=== PATIENT | female | born 1970 | race Caucasian/White ===

== ENCOUNTER → 2017-06-16 | Outpatient (CLI) | payer BC | END | disposition home or self-care (01) | LOC: GMAB 10:22 | PROVIDERS: ATTEND Family Medicine | DX: Z00.00 Encounter for general adult medical examination without abnormal findings (principal) ==

== ENCOUNTER 2019-03-03 00:01 | Emergency (ER) | payer BC ==
[2019-03-03] MEDS ORDERED: ALUM & MAG HYDROX-SIMETHICONE 30 ML, LIDOCAINE VISCOUS 2% 15 ML PO ONE ×2 (00:23)
[2019-03-03] MEDS ORDERED: ALUM & MAG HYDROX-SIMETHICONE 30 ML UD ONE (00:24)
[2019-03-03] MEDS ORDERED: LIDOCAINE HCL 2% (MOUTH-THROAT) 15 ML UD ONE (00:24)
--- NOTE | 2019-03-03 00:29 | ED.PDOC ---
History of Present Illness - General Chief Complaint: Abdominal Pain Stated Complaint: upper abdominal pain Time Seen by Provider: 03/03/19 00:22 Information Source: patient, family Exam Limitations: no limitations - History of Present Illness Initial Comments: patient comes in today for sudden onset at 4 PM of epigastric pain radiating to her chest to her jaw. Patient states it feels that there is a horrible pressure pushing up to the area. Patient had an episode of emesis while waiting in the emergency room and states that made it feel a whole lot better. Patient states the discomfort now is minimal. Patient states she is dull with this pain pretty much her entire adult life. They to get her gallbladder but that did not make a difference and she's had endoscopy that was always read as normal. Patient states normally she drinks some water that will help relieve the pressure but this time that did not work. Patient's had no fever or chills. She's had no abdominal distention or diarrhea. She denies any cough or cold symptoms. Patient is otherwise in her usual state of health. She does have a history of cluster headaches and has had to have surgery of her cervical and lumbar spine. Patient's past surgical history is also positive for abdominal hysterectomy, cholecystectomy, C-sections 2. Abdominal Pain Onset Location: epigastric Pain Radiation: chest, other - jaw Quality: severe, aching - pressure like pain Timing/Duration: 7-24 hours Improving Factors: other - emesis and usually drinking water Worsening Factors: nothing Associated Symptoms: nausea/vomiting Review of Systems - Review of Systems Constitutional: States: no symptoms reported. Denies: chills, fever, malaise, weakness EENTM: States: no symptoms reported. Denies: eye pain, ear pain, nose congestion, throat pain Respiratory: States: no symptoms reported. Denies: cough, short of breath, wheezing Cardiology: States: no symptoms reported. Denies: chest pain Gastrointestinal/Abdominal: States: see HPI, abdominal pain, nausea, vomiting Genitourinary: States: no symptoms reported Musculoskeletal: States: no symptoms reported Past Medical History (General) - Patient Medical History Hx Cardiac Disorders: No Hx Congestive Heart Failure: No Hx Hypertension: No Hx Diabetes: No Hx Cancer: No Hx Hepatitis C: No Hx MRSA: No Surgical History: cholecystectomy, Hysterectomy, other - x 2, Hyst, neck and back surgery - Vaccination History Hx Tetanus, Diphtheria Vaccination: No Hx Influenza Vaccination: No Hx Pneumococcal Vaccination: No - Social History Hx Tobacco Use: No Hx Alcohol Use: Yes Hx Substance Use: No Hx Substance Use Treatment: No Hx Depression: No - Female History Patient : No Family Medical History - Family History Mother Family History: Unknown Physical Exam - Physical Exam General Appearance: Alert, Comfortable, No apparent distress Eyes, Ears, Nose, Throat Exam: PERRL/EOMI, normal ENT inspection, TMs normal, pharynx normal Neck: non-tender, full range of motion, supple, normal inspection Respiratory: chest non-tender, lungs clear, normal breath sounds, no respiratory distress Cardiovascular/Chest: normal peripheral pulses, regular rate, rhythm, no edema, no murmur Peripheral Pulses: No deficit Gastrointestinal/Abdominal: normal bowel sounds, non tender, soft Back Exam: normal inspection, no CVA tenderness Extremity: normal range of motion Neurologic: alert, oriented x 3 Progress - Progress Progress: 03/03/19 01:36 patient is feeling much better and currently asymptomatic. Explained test results and will have her contact GI on Tuesday to see if possible hiatal hernia. - Results/Orders Results/Orders: 03/03/19 00:30 EKG STAT Laboratory Results WBC 9.0 K/mm3 (4.8-10.8) 03/03/19 00:35 RBC 4.61 M/mm3 (4.20-5.40) 03/03/19 00:35 Hgb 14.6 gm/dL (12.0-16.0) 03/03/19 00:35 Hct 42.9 % (36.0-47.0) 03/03/19 00:35 MCV 93.0 fl (81.0-99.0) 03/03/19 00:35 MCH 31.7 pg (27.0-31.0) H 03/03/19 00:35 MCHC 34.1 g/dL (33.0-37.0) 03/03/19 00:35 RDW 12.8 % (11.5-14.5) 03/03/19 00:35 Plt Count 208 K/mm3 (130-400) 03/03/19 00:35 MPV 8.9 fl (7.40-10.4) 03/03/19 00:35 Absolute Neuts (auto) 5.00 K/uL (1.8-6.8) 03/03/19 00:35 Absolute Lymphs (auto) 2.90 K/uL (1.0-3.4) 03/03/19 00:35 Absolute Monos (auto) 0.70 K/uL (0.2-0.8) 03/03/19 00:35 Absolute Eos (auto) 0.40 K/uL (0.0-0.4) 03/03/19 00:35 Absolute Basos (auto) 0.00 K/uL (0.0-0.1) 03/03/19 00:35 Neutrophils % 55.7 % (42.0-78.0) 03/03/19 00:35 Lymphocytes % 32.1 % (20.0-50.0) 03/03/19 00:35 Monocytes % 7.7 % (2.0-9.0) 03/03/19 00:35 Eosinophils % 4.0 % (1.0-5.0) 03/03/19 00:35 Basophils % 0.5 % (0.0-2.0) 03/03/19 00:35 Sodium 140 mmol/L (135-145) 03/03/19 00:35 Potassium 3.7 mmol/L (3.6-5.0) 03/03/19 00:35 Chloride 109 mmol/L (101-111) 03/03/19 00:35 Carbon Dioxide 23 mmol/L (21-31) 03/03/19 00:35 Anion Gap 11.7 (12-18) L 03/03/19 00:35 BUN 13 mg/dL (7-18) 03/03/19 00:35 Creatinine 0.60 mg/dL (0.6-1.3) 03/03/19 00:35 BUN/Creatinine Ratio 21.7 (10-20) H 03/03/19 00:35 Random Glucose 105 mg/dL (70-105) 03/03/19 00:35 Serum Osmolality 279.9 mOsm/L (275-295) 03/03/19 00:35 Calcium 9.2 mg/dL (8.4-10.2) 03/03/19 00:35 Total Bilirubin 0.3 mg/dL (0.2-1.0) 03/03/19 00:35 AST 20 IU/L (10-42) 03/03/19 00:35 ALT 26 IU/L (10-60) 03/03/19 00:35 Alkaline Phosphatase 63 IU/L (42-121) 03/03/19 00:35 Creatine Kinase 70 IU/L (26-140) 03/03/19 00:35 CK-MB (CK-2) 1.2 ng/mL (0.0-4.4) 03/03/19 00:35 CK-MB (CK-2) % Not Reportable 03/03/19 00:35 Troponin I < 0.02 ng/mL (0.01-0.05) 03/03/19 00:35 Serum Total Protein 7.1 gm/dL (6.4-8.2) 03/03/19 00:35 Albumin 4.0 g/dl (3.2-5.5) 03/03/19 00:35 Globulin 3.1 gm/dL (2.3-3.5) 03/03/19 00:35 Albumin/Globulin Ratio 1.3 (1.1-1.9) 03/03/19 00:35 Amylase 69 U/L (28-100) 03/03/19 00:35 Lipase 44 U/L (22-51) 03/03/19 00:35 - EKG/XRAY/CT EKG: Sinus, no ST T wave changes Comments: HR 75 normal axis Departure - Departure Clinical Impression: Gastritis Qualifiers: Gastritis type: unspecified gastritis Chronicity: acute Gastritis bleeding: without bleeding Qualified Code(s): K29.00 - Acute gastritis without bleeding Disposition: Discharge to Home or Self Care Condition: Good Departure Forms: ED Discharge - Pt. Copy, Patient Portal Self Enrollment Instructions: DI for Abdominal Pain-Adult Referrals: JOHN COCHRAN MD [Primary Care Provider] - 1-2 Weeks Home Medications: Ambulatory Orders Bifidobacterium Infantis [Align] 4 mg PO DAILY 12/22/15 Pantoprazole Sodium [Protonix] 20 mg PO DAILY 12/22/15 Additional Instructions: follow up on [place] with GI. Return to ER for intractable emesis or return of pain.
[2019-03-03] MEDS ORDERED: KETOROLAC TROMETHAMINE INJ 60 MG/2 ML VIAL IM ONE (00:48)
[2019-03-03 01:13] VITALS: O2SAT 96
[2019-03-03 01:45] VITALS: BP 109/68; TEMP 98.4
== END 2019-03-03 01:43 | disposition home or self-care (01) ==
LOC: ER 00:01
DX: K29.00 Acute gastritis without bleeding (principal); Z90.49 Acquired absence of other specified parts of digestive tract; Z90.710 Acquired absence of both cervix and uterus
CPT/HCPCS: 80053; 82150; 82550; 82553; 83690; 84484; 85025; 93005; J1885

== ENCOUNTER → 2020-09-23 | Outpatient (CLI) | payer BC | LOC: GMAE 10:29 | PROVIDERS: ATTEND Family Medicine | DX: Z00.00 Encounter for general adult medical examination without abnormal findings (principal); K76.0 Fatty (change of) liver, not elsewhere classified; R30.0 Dysuria ==

== ENCOUNTER → 2020-12-08 | Outpatient (CLI) | payer BC | LOC: GMAE 15:09 | PROVIDERS: ATTEND Family Medicine | DX: U07.1 COVID-19 (principal) ==

== ENCOUNTER 2020-12-13 00:07 | Emergency (ER) | payer BC ==
[2020-12-13] MEDS ORDERED: DEXAMETHASONE INJ 10 MG/ML VIAL IV ONE (00:19)
[2020-12-13] MEDS ORDERED: METOCLOPRAMIDE HCL INJ 10 MG/2 ML VIAL IV ONE (00:19)
[2020-12-13] MEDS ORDERED: diphenhydrAMINE HCL 50 MG/ML VIAL IV ONE (00:19)
[2020-12-13] MEDS ORDERED: SODIUM CHLORIDE 0.9% 1000ML 1,000 ML IVS ONE (00:20)
--- NOTE | 2020-12-13 00:22 | ED.PDOC ---
History of Present Illness - General Chief Complaint: Headache Stated Complaint: headacche, nausea, vomiting Time Seen by Provider: 12/13/20 00:19 Additional Information: Patient is a 50-year-old female who presents to the ED with chief complaint of headache. Headache began approximately 1 hour prior to arrival. Patient has a history of recurrent headaches/migraines and she indicates her headache is similar today but worse than her typical migraine. Pain is in the right side of her head at the denominational and parietal area. Headache is throbbing and moderate to severe intensity. Patient has nausea and vomiting. Patient denies fever, ch ills, chest pain, shortness of breath, cough. Patient recently was diagnosed with Covid on December 01 but was cleared to go back to work on the . She considers herself recovered from Covid. There are no other concerns today. - History of Present Illness Allergies/Adverse Reactions: Allergies NO KNOWN ALLERGY Allergy (Verified 12/08/15 13:02) Home Medications: Ambulatory Orders Bifidobacterium Infantis [Align] 4 mg PO DAILY 12/22/15 Pantoprazole Sodium [Protonix] 20 mg PO DAILY 12/22/15 Sumatriptan Succinate [Imitrex] 25 mg PO DAILY PRN #20 tab 12/13/20 Review of Systems - Review of Systems Constitutional: States: no symptoms reported. Denies: chills, fever EENTM: States: no symptoms reported. Denies: blurred vision Respiratory: States: no symptoms reported. Denies: cough, short of breath Cardiology: States: no symptoms reported. Denies: chest pain, palpitations Gastrointestinal/Abdominal: States: abdominal pain, nausea, vomiting Genitourinary: States: no symptoms reported. Denies: dysuria Neurological: States: headache. Denies: depressed, numbness, paresthesia, weakness All other Systems: Reviewed and Negative Past Medical History (General) - Patient Medical History Hx Cardiac Disorders: No Hx Congestive Heart Failure: No Hx Hypertension: No Hx Diabetes: No Hx Cancer: No Hx Hepatitis C: No Hx MRSA: No - Vaccination History Hx Tetanus, Diphtheria Vaccination: No Hx Influenza Vaccination: No Hx Pneumococcal Vaccination: No - Social History Hx Tobacco Use: No Hx Alcohol Use: Yes Hx Substance Use: No Hx Substance Use Treatment: No Hx Depression: No - Female History Patient : No Family Medical History - Family History Mother Family History: Unknown Physical Exam - Physical Exam General Appearance: Alert, Anxious, Obvious distress, Well Developed, Well Nourished Eyes, Ears, Nose, Throat Exam: PERRL/EOMI, normal ENT inspection Neck: non-tender, full range of motion, supple, normal inspection Cardiovascular/Chest: normal peripheral pulses, regular rate, rhythm, no edema, no gallop, no JVD, no murmur Respiratory: chest non-tender, lungs clear, normal breath sounds, no respiratory distress, no accessory muscle use Gastrointestinal/Abdominal: normal bowel sounds, non tender, soft Extremity: normal range of motion Mental Status: alert, oriented x 3 production manufacturing worker Exam: normal hearing, normal speech, PERRL Coordination/Gait: normal gait Motor/Sensory: no motor deficit, no sensory deficit, no pronator drift Skin Exam: warm/dry, normal color Progress - Progress Progress: 12/13/20 01:37 Patient seen and reassessed and she is feeling much better at this time following headache cocktail. Patient has a longstanding history of migraines I believe that her headache today was a migraine variant. I will discharge with Imitrex and patient to follow-up with her PCP. There is no indication for formal ED work-up today. Patient has a normal neurologic exam and does not warrant any acute imaging. Vital signs stable, patient is NAD and looks clinically well and I believe is safe for discharge with outpatient follow-up. Follow-up instructions, discharge instructions and return to ED precautions discussed with patient. Patient voices understanding and willingness to comply with instructions. All questions answered. Patient is happy with plan. Departure - Departure Clinical Impression: Headache Qualifiers: Headache type: unspecified Headache chronicity pattern: acute headache Intractability: not intractable Qualified Code(s): R51.9 - Headache, unspecified Time of Disposition: 01:39 Disposition: Discharge to Home or Self Care Condition: Good Departure Forms: ED Discharge - Pt. Copy, Patient Portal Self Enrollment Instructions: DI for Headache, Migraines (DC), Headache, Adult (DC) Referrals: JOHN COCHRAN MD [Primary Care Provider] - 1-5 Days Prescriptions: Sumatriptan Succinate [Imitrex] 25 mg PO DAILY PRN #20 tab PRN Reason: Headache/Migraine Pain Home Medications: Ambulatory Orders Bifidobacterium Infantis [Align] 4 mg PO DAILY 12/22/15 Pantoprazole Sodium [Protonix] 20 mg PO DAILY 12/22/15 Sumatriptan Succinate [Imitrex] 25 mg PO DAILY PRN #20 tab 12/13/20
[2020-12-13 01:56] VITALS: O2SAT 96
[2020-12-13 01:58] VITALS: BP 142/71; TEMP 97.4
== END 2020-12-13 01:58 | disposition home or self-care (01) ==
LOC: ER 00:07
DX: R51.9 Headache, unspecified (principal); R11.2 Nausea with vomiting, unspecified; Z86.16 Personal history of COVID-19
CPT/HCPCS: J1100; J1200; J2765; J7030